=== PATIENT | female | born 1980 ===

== ENCOUNTER 2022-03-26 10:01 | Emergency (ER) | payer SELFPAY ==
[~2022-03-26] VITALS: Ht 160 cm; Wt 62.0 kg
[2022-03-26 10:55] LABS: BASOPHILS # (AUTO) 0.1 10^3/uL (0.0-0.1); BASOPHILS % (AUTO) 1 % (0-10); EOSINOPHILS # (AUTO) 0.7 10^3/uL (0.0-0.3); EOSINOPHILS % (AUTO) 9 % (0-10); HEMATOCRIT 42 % (35-52); LYMPHOCYTES # (AUTO) 2.5 10^3/uL (1.0-4.0); LYMPHOCYTES % (AUTO) 33 % (12-44); MEAN CORPUSCULAR HEMOGLOBIN 29 pg (25-34); MEAN CORPUSCULAR HGB CONC 33 g/dL (32-36); MEAN CORPUSCULAR VOLUME 87 fL (80-99); MEAN PLATELET VOLUME 10.1 fL (9.0-12.2); MONOCYTES # (AUTO) 0.5 10^3/uL (0.0-1.0); MONOCYTES % (AUTO) 6 % (0-12); NEUTROPHILS # (AUTO) 3.9 10^3/uL (1.8-7.8); NEUTROPHILS % (AUTO) 52 % (42-75); PLATELET COUNT 409 10^3/uL (130-400); WHITE BLOOD COUNT 7.6 10^3/uL (4.3-11.0)
[2022-03-26 11:12] LABS: ALBUMIN 4.3 GM/DL (3.2-4.5)
[2022-03-26 11:13] LABS: CHLORIDE 103 MMOL/L (98-107); POTASSIUM 3.7 MMOL/L (3.6-5.0); SODIUM 141 MMOL/L (135-145)
[2022-03-26 11:14] LABS: CALCIUM 9.6 MG/DL (8.5-10.1)
[2022-03-26 11:15] LABS: GLUCOSE 98 MG/DL (70-105); TOTAL PROTEIN 7.3 GM/DL (6.4-8.2)
[2022-03-26 11:16] LABS: CARBON DIOXIDE 25 MMOL/L (21-32)
[2022-03-26 11:18] LABS: ALKALINE PHOSPHATASE 68 U/L (40-136)
[2022-03-26 11:19] LABS: CREATININE SERUM 0.76 MG/DL (0.60-1.30); GFR ESTIMATED 100
[2022-03-26 11:20] LABS: BUN/CREATININE RATIO 8
[2022-03-26 11:21] LABS: ALANINE AMINOTRANSFERASE 21 U/L (0-55)
--- NOTE | 2022-03-26 11:22 | Diagnostic Imaging Report ---
EXAMINATION: Chest, 1 view. HISTORY: Chest pain. COMPARISON: None available. FINDINGS: Heart size and pulmonary vasculature are normal. The lungs are clear without consolidation, pleural effusion, or pneumothorax. The osseous structures are intact. IMPRESSION: No acute radiographic abnormality in the chest. Dictated by: Dictated on workstation # [id number]
[2022-03-26] MEDS ORDERED: IOHEXOL 350 MG/ML 100 ML (OMNIPAQUE 350) VIAL IV ONE (11:45)
[2022-03-26] MEDS ORDERED: KETOROLAC 30 MG/ML VIAL IVP ONE (11:45)
[2022-03-26] MEDS ORDERED: ONDANSETRON 4 MG/2 ML (SDV) Z0FRAN IVP ONE (11:45)
[2022-03-26] MEDS ORDERED: NS 100 ML (IVPB) BAG IV ONE (11:45)
--- NOTE | 2022-03-26 12:17 | Diagnostic Imaging Report ---
EXAMINATION: CT angiography of the chest. TECHNIQUE: Contrast enhanced thin section helical images were obtained through the chest with intravenous contrast timed for the optimal opacification of the arterial structures per CTA protocol. Post-processing, reconstructions and interpretation of angiographic images of the vessels was performed. 3D MIP reconstructions were performed and reviewed. All CT scans use one or more of the following dose optimizing techniques: automated exposure control, MA and/or KvP adjustment based on a patient size and exam type, or iterative reconstruction. HISTORY: Chest pain, shortness of breath. COMPARISON: None available. FINDINGS: Vascular: No filling defects within the pulmonary arteries. Thoracic aorta is normal in caliber. Thyroid: The thyroid is normal. Mediastinum: Heart size is normal without significant pericardial effusion. No suspicious lymphadenopathy. Lungs and airways: The lungs are clear without consolidation, pleural effusion, or pneumothorax. The airways are normal. Upper abdomen: The subphrenic structures are normal. Musculoskeletal: No suspicious osseous lesion or compression fracture. IMPRESSION: No findings of pulmonary embolus or other acute abnormality in the chest. Dictated by: Dictated on workstation # [id number]
--- NOTE | 2022-03-26 12:23 | ED General ---
General Chief Complaint: Abdominal/GI Problems Stated Complaint: VOMITING/CHEST PAIN/WEAKNESS/LEFT SIDE ABD PAIN Nursing Triage Note: PT STATES CHEST PAIN, BODY ACHES AND HEADDACHE SINCE YESTERDAY, VOMITING, NAUSEA AND WEAKNESS Source of Information: Patient Exam Limitations: No Limitations History of Present Illness Date Seen by Provider: Mar 26, 2022 Time Seen by Provider: 11:00 Initial Comments 41-year-old female presents emerged department today for chest pain body aches headache since yesterday. She is also nauseous and vomiting and has generalized weakness. Headache is dull throbbing and diffuse. Chest pain is left sharp stabbing without radiation. No aggravating or alleviating symptoms. No associated symptoms. She never had similar symptoms in the past. Is described as mild. The headaches have this moderate. She also describes diffuse body aches, generalized weakness some chills intermittently. Emesis has been nonbloody nonbilious. She has no abdominal pain. No changes in bowel or bladder habits. History is obtained via Ghanaian interpretation via teleconference. Allergies and Home Medications Allergies Coded Allergies: No Known Drug Allergies (Unverified , 03/26/22) Patient Home Medication List Home Medication List Reviewed: Yes Review of Systems Review of Systems Constitutional: weakness EENTM: no symptoms reported Respiratory: no symptoms reported Cardiovascular: chest pain Gastrointestinal: nausea, vomiting Genitourinary: no symptoms reported Musculoskeletal: other (Body aches) Skin: no symptoms reported Psychiatric/Neurological: Headache Hematologic/Lymphatic: No Symptoms Reported Immunological/Allergic: no symptoms reported Past Wwomxwn-Roxnlu-Ilqbho Hx Patient Social History Tobacco Use?: No Substance use?: No Alcohol Use?: No Past Medical History Surgery/Hospitalization HX: Hypercholesterolemia Family Medical History Reviewed Nursing Family Hx No Pertinent Family Hx Physical Exam Vital Signs Vital Signs - First Documented 03/26/22 10:15 Temp 36.3 Pulse 74 Resp 20 B/P (MAP) 141/80 (100) Pulse Ox 100 O2 Delivery Room Air Capillary Refill : Less Than 3 Seconds Height, Weight, BMI Height: '" Weight: lbs. oz. kg; 24.00 BMI Method: General Appearance: No Apparent Distress, WD/WN HEENT: PERRL/EOMI, TMs Normal, Normal ENT Inspection, Pharynx Normal Neck: Full Range of Motion, Normal Inspection, Non Tender, Supple Respiratory: Chest Non Tender, Lungs Clear, Normal Breath Sounds, No Accessory Muscle Use, No Respiratory Distress Cardiovascular: Regular Rate, Rhythm, No Edema, No Gallop, No JVD, No Murmur, Normal Peripheral Pulses Gastrointestinal: Normal Bowel Sounds, No Organomegaly, No Pulsatile Mass, Non Tender, Soft Extremity: Normal Capillary Refill, Normal Inspection, Normal Range of Motion, Non Tender, No Calf Tenderness, No Pedal Edema Neurologic/Psychiatric: Alert, Oriented x3, Normal Mood/Affect Skin: Normal Color, Warm/Dry Lymphatic: No Adenopathy Progress/Results/Core Measures Suspected Sepsis SIRS Temperature: Pulse: 74 Respiratory Rate: 20 Laboratory Tests 03/26/22 10:40: White Blood Count 7.6 Blood Pressure 141 /80 Mean: 100 Laboratory Tests 03/26/22 10:40: Creatinine 0.76, Platelet Count 409H, Total Bilirubin 1.0 Results/Orders Lab Results Laboratory Tests Test 03/26/22 10:26 03/26/22 10:40 Range/Units Influenza Type A (RT-PCR) Not Detected Not Detecte Influenza Type B (RT-PCR) Not Detected Not Detecte SARS-CoV-2 RNA (RT-PCR) Not Detected Not Detecte White Blood Count 7.6 4.3-11.0 10^3/uL Red Blood Count 4.88 3.80-5.11 10^6/uL Hemoglobin 14.0 11.5-16.0 g/dL Hematocrit 42 35-52 % Mean Corpuscular Volume 87 80-99 fL Mean Corpuscular Hemoglobin 29 25-34 pg Mean Corpuscular Hemoglobin Concent 33 32-36 g/dL Red Cell Distribution Width 14.4 10.0-14.5 % Platelet Count 409 H 130-400 10^3/uL Mean Platelet Volume 10.1 9.0-12.2 fL Immature Granulocyte % (Auto) 0 % Neutrophils (%) (Auto) 52 42-75 % Lymphocytes (%) (Auto) 33 12-44 % Monocytes (%) (Auto) 6 0-12 % Eosinophils (%) (Auto) 9 0-10 % Basophils (%) (Auto) 1 0-10 % Neutrophils # (Auto) 3.9 1.8-7.8 10^3/uL Lymphocytes # (Auto) 2.5 1.0-4.0 10^3/uL Monocytes # (Auto) 0.5 0.0-1.0 10^3/uL Eosinophils # (Auto) 0.7 H 0.0-0.3 10^3/uL Basophils # (Auto) 0.1 0.0-0.1 10^3/uL Immature Granulocyte # (Auto) 0.0 0.0-0.1 10^3/uL Sodium Level 141 135-145 MMOL/L Potassium Level 3.7 3.6-5.0 MMOL/L Chloride Level 103 98-107 MMOL/L Carbon Dioxide Level 25 21-32 MMOL/L Anion Gap 13 5-14 MMOL/L Blood Urea Nitrogen 6 L 7-18 MG/DL Creatinine 0.76 0.60-1.30 MG/DL Estimat Glomerular Filtration Rate 100 BUN/Creatinine Ratio 8 Glucose Level 98 70-105 MG/DL Calcium Level 9.6 8.5-10.1 MG/DL Corrected Calcium 9.4 8.5-10.1 MG/DL Total Bilirubin 1.0 0.1-1.0 MG/DL Aspartate Amino Transf (AST/SGOT) 21 5-34 U/L Alanine Aminotransferase (ALT/SGPT) 21 0-55 U/L Alkaline Phosphatase 68 40-136 U/L Troponin I < 0.028 <0.028 NG/ML Total Protein 7.3 6.4-8.2 GM/DL Albumin 4.3 3.2-4.5 GM/DL Serum Test, Qualitative NEGATIVE NEGATIVE My Orders Orders - ZACKARYBREANNE Marshall DO Comprehensive Metabolic Panel (03/26/22 10:27) Troponin I Juan Luis (03/26/22 10:27) Ekg Tracing (03/26/22 10:27) Chest 1 View, Ap/Pa Only (03/26/22 10:27) Covid 19 Inhouse Test (03/26/22 10:27) Cbc With Automated Diff (03/26/22 10:27) Influenza A And B By Pcr (03/26/22 10:27) Hcg,Qualitative Serum (03/26/22 10:27) Ketorolac Injection (Toradol Injection) (03/26/22 11:45) Ondansetron Injection (Zofran Injectio (03/26/22 11:45) Ct Angio Chest W (03/26/22 11:32) Iohexol Injection (Omnipaque 350 Mg/Ml 1 (03/26/22 11:45) Ns (Ivpb) (Sodium Chloride 0.9% Ivpb Bag (03/26/22 11:45) Medications Given in ED Current Medications Medications Dose Ordered Sig/Long Route Start Time Stop Time Status Last Admin Dose Admin Iohexol 100 ml ONCE ONCE IV 03/26/22 11:45 03/26/22 11:46 DC 03/26/22 12:06 65 ML Ketorolac Tromethamine 30 mg ONCE ONCE IVP 03/26/22 11:45 03/26/22 11:46 DC 03/26/22 11:50 30 MG Ondansetron HCl 8 mg ONCE ONCE IVP 03/26/22 11:45 03/26/22 11:46 DC 03/26/22 11:51 8 MG Sodium Chloride 100 ml ONCE ONCE IV 03/26/22 11:45 03/26/22 11:46 DC 03/26/22 12:06 67 ML Vital Signs/I&O 03/26/22 03/26/22 10:15 11:50 Temp 36.3 36.3 Pulse 74 Resp 20 B/P (MAP) 141/80 (100) Pulse Ox 100 O2 Delivery Room Air Capillary Refill : Less Than 3 Seconds Blood Pressure Mean: 100 ECG EKG : Comment Sinus rhythm with a rate of 70 bpm. Normal intervals. Normal axis. No ST or T wave abnormalities. No ectopy. No STEMI. Diagnostic Imaging Comments AP chest x-ray: Negative for acute findings CT angiography chest: Negative for any acute findings, no PE Departure Communication (Admissions) Patient is hemodynamically stable. She has left chest pain which is a prominent feature as is her headache and body aches. Cardiac and pulmonary work-up negative including negative EKG, troponin. CTA is negative for any pneumonia, pulmonary embolus or other acute abnormality. She has no fever, is not tachycardic. Her labs are reassuring as is her exam. No evidence of meningitis. I think she likely has a viral syndrome. She is given Toradol with some improvement in her headache. She is also given Zofran here for nausea. She will be discharged with the same. Questions were sought and answered. All interaction was done in the presence of the freelance interpreter/translator via telemetry interpretation service. Written instructions were provided in [place]ian as well Impression Primary Impression: Chest pain Qualified Codes: R07.9 - Chest pain, unspecified Additional Impressions: Body aches Headache Qualified Codes: R51.9 - Headache, unspecified Viral illness Disposition: 01 HOME, SELF-CARE Condition: Stable Departure-Patient Inst. Patient Instructions: Chest Pain, Headache, Adult ED, Viral Syndrome (DC) Add. Discharge Instructions: Increase your fluids at home, rest. Use ibuprofen and Tylenol for body aches and headache, chest pain. It does not appear that your pain is coming from your heart or lungs at this time. I believe you likely have a viral illness. This will likely resolve in the next couple of days. Return to the emergency department for any severe concerns. Follow-up with your primary doctor in 2 to 3 days should your symptoms persist. All discharge instructions reviewed with patient and/or family. Voiced understanding. aumenta tus lquidos en casa, descansa. Use ibuprofeno y Tylenol para jaci de cuerpo y dolor de andres, dolor de pecho. No parece que cartagena dolor provenga de cartagena corazn o pulmones en anastacio momento. Creo que es probable que tenga damian enfermedad viral. Es probable que esto se resuelva en los prximos [place]. Regrese al departamento de emergencias por cualquier inquietud grave. Devan un seguimiento con cartagena mdico de cabecera en 2 a 3 [place] si cyrus sntomas persisten. Todas las instrucciones de jayj ay revisadas con el paciente y/o la corbin. Comprensin expresada. Scripts Ketorolac Tromethamine (Ketorolac Tromethamine) 10 Mg Tablet 10 MG PO TID for Pain for 3 Days, #9 TAB Prov: BREANNE RAYMUNDO DO 03/26/22 Ondansetron (Ondansetron Odt) 8 Mg Tab.rapdis 8 MG SL Q4H PRN for NAUSEA/VOMITING for 3 Days, #18 TAB Prov: BREANNE RAYMUNDO DO 03/26/22 BREANNE RAYMUNDO DO Mar 26, 2022 12:23
[2022-03-26] MEDS ORDERED: KETO10TA PO (12:35)
[2022-03-26] MEDS ORDERED: ONDA8TAB13 SL (12:35)
[2022-03-26 12:41] VITALS: BP 120/77
== END 2022-03-26 12:41 | disposition home or self-care (01) ==
LOC: ER 10:06
DX: R07.89 Other chest pain (principal); B34.9 Viral infection, unspecified; R51.9 Headache, unspecified; M79.10 Myalgia, unspecified site; R11.2 Nausea with vomiting, unspecified; Z20.822 Contact with and (suspected) exposure to COVID-19
CPT/HCPCS: 36415; 71045; 71275; 80053; 84484; 84703; 85025; 87636; 93005